=== PATIENT | female | born 1975 | race Caucasian/White ===

== ENCOUNTER → 2016-06-06 | Outpatient (CLI) | payer OTHER ==
[~2016-06-06] MED LIST: CIPR500T89 PO; DEPA500T OR; DOCU10CA PO; GLYCADSU PR; IBUP600T26 PO; IBUP60TA PO; LEXAPRO OR; NAPR500T81 PO; NORC10TA2 PO; NORCOTAB PO; PROZ20CA11 PO; ROBA500T OR; SING10TA32 PO; SYNT175T OR; TOPI100T OR; TOPI50TA OR; VICO5TAB PO; VOLT1GEL TOP; XYZASOL2 PO; [UNRECOGNIZED DRUG - OTHER] OU; [UNRECOGNIZED DRUG - OTHER] PO; clarinex PO; lidocaine cream TOP; vitamin d 3 PO
[2016-06-07 08:09] LABS: FREE T4 0.92 NG/DL (0.76-1.46)
== END ==
LOC: M WUC 16:06
PROVIDERS: ATTEND Nurse Practitioner Family
DX: E03.9 Hypothyroidism, unspecified (principal)

== ENCOUNTER → 2016-08-30 | Outpatient (CLI) | payer OTHER | LOC: M SMT 14:41 | PROVIDERS: ATTEND Allergy & Immunology Allergy | DX: Z91.018 Allergy to other foods (principal) ==